=== PATIENT | male | born 1965 | race Caucasian/White ===

== ENCOUNTER 2017-05-29 07:42 | Emergency (ER) | payer MEDICAID ==
[2017-05-29 07:48] VITALS: BP 156/78; PULSE 81; RESP 16; TEMP 97.5; O2SAT 98
--- NOTE | 2017-05-29 07:52 | EDPHY ---
H & P Stated Complaint: metal in eye Time Seen by Provider: 05/29/17 07:51 - Personal History Current Tetanus/Diphtheria Vaccine: No Current Tetanus Diphtheria and Acellular Pertussis (TDAP): No - Medical/Surgical History Hx Asthma: No Hx Chronic Respiratory Disease: No Hx Diabetes: Yes Hx Cardiac Disease: No Hx Renal Disease: No Hx Cirrhosis: No Hx Alcoholism: No Hx HIV/AIDS: No Hx Splenectomy or Spleen Trauma: No Other PMH: type 1 DM - Social History Smoking Status: Light smoker Constitutional: Initial Vital Signs Temperature (C) 36.4 C 05/29/17 07:44 Heart Rate 81 05/29/17 07:44 Respiratory Rate 16 05/29/17 07:44 Blood Pressure 156/78 H 05/29/17 07:44 O2 Sat (%) 98 05/29/17 07:44 O2 Delivery Mode Room Air Allergies/Adverse Reactions: No Known Allergies Allergy (Unverified 03/26/10 16:31) Home Medications: Medication Instructions Recorded HUM INSULIN NPH/REG INSULIN HM 03/26/10 NPH, HUMAN INSULIN ISOPHANE 03/26/10 Ofloxacin 0.3% [Ocuflox 0.3%] 1 drops OP QID #1 opht.btl 05/29/17 Medical Decision Making ED Course/Re-evaluation: CHIEF COMPLAINT: Right eye foreign body HISTORY OF PRESENT ILLNESS: This patient is a 51 year old male complaining of right eye pain secondary to a piece of metal that became stuck in his eye yesterday afternoon. He states he was grinding metal and a piece flew into his eye. He states he was wearing soft contacts at the time, and when he took them out yesterday evening, he noted pain and observed a small dallas of metal. He states he attempted to remove the object with a paper towel, but was unsuccessful. He denies any changes in vision , discharge, or other associated symptoms. No other trauma. REVIEW OF SYSTEMS: A 10 point review of systems was performed and is negative with the exception of the elements mentioned in the history of present illness. PHYSICAL EXAM: Visual Acuity: Noted from Nurse's notes. Pupils: PERRLA, EOMI, no nystagmus, no trauma, no injection. Lids: No edema or swelling Skin: No proptosis, no periorbital erythema or swelling, no vesicles Conjunctivae: Mild injection, not icteric, no discharge Cornea: Exam with slit lamp and fluorescein shows metallic foreign body on surface at 2 o'clock position, small rust ring Anterior chamber: Normal, no hyphema or hypopyon Posterior Chamber: No papilledema or hemorrhages. Past medical history: Diabetes mellitus type I Past surgical history: Noncontributory Family history: Noncontributory Social history: Lives in [place]. DIAGNOSTICS/PROCEDURES/CRITICAL CARE TIME: Procedure: Eye foreign body removal The patient's eye was anesthetized with proparacaine drops. Foreign body easily extracted with 18 gauge needle. No complications. The patient tolerated the procedure well. DIFFERENTIAL DIAGNOSIS: The differential diagnosis for the patients eye pain included but was not limited to foreign body, corneal abrasion, allergic, viral, bacterial, or chemical conjunctivitis. MEDICAL DECISION MAKING: This patient is a 51 year old male presenting with a small metallic foreign object in his right eye. Physical exam reveals a tiny dallas of metal about 0.5mm in diameter on the surface of the cornea at the 2 o'clock position. Plan to remove foreign body. The metallic foreign body was easily extracted as described above. Plan to discharge home in good condition. The patient will follow up with ophthalmology this week. He has been given a prescription for Ocuflox drops. Offered tetanus shot, but the patient declines at this time. I discussed the importance of receiving a tetanus shot within the next 72 hours. The patient understands this and is comfortable with discharge. - Data Points Medications Given: Discontinued Medications Proparacaine HCl (Alcaine 0.5%) 1 drops RTEYE ONCE ONE Stop: 05/29/17 08:07 Last Admin: 05/29/17 08:08 Dose: 1 drop Departure - Departure Disposition: Home, Routine, Self-Care Clinical Impression: Corneal abrasion Qualifiers: Encounter type: initial encounter Laterality: right Qualified Code(s): S05.01XA - Injury of conjunctiva and corneal abrasion without foreign body, right eye, initial encounter Eye foreign body Qualifiers: Encounter type: initial encounter Laterality: right Qualified Code(s): T15.91XA - Foreign body on external eye, part unspecified, right eye, initial encounter Condition: Good Instructions: Corneal Abrasion (ED), Eye Foreign Body (ED) Additional Instructions: 1. Use your Ocuflox drops as prescribed four times a day for the next 3-4 days. 2. Follow up with an 911 operator this week. We have referred your to our eye doctor outdoor education teacher, but you may follow up with your 911 operator if you prefer. 3. Remember to get your tetanus shot within the next 72 hours as we discussed. 4. Return to the Emergency Department if you develop any changes in your vision , increased redness, discharge, or other worsening of condition. Referrals: Kd Acosta MD [Medical Doctor] - As per Instructions Prescriptions: Ofloxacin 0.3% [Ocuflox 0.3%] 1 drops OP QID #1 opht.btl Report Scribed for: Harshad Shepard Report Scribed by: Lakeshia Lizama Date of Report: 05/29/17 Time of Report: 08:12
[2017-05-29] MEDS ORDERED: PROPARACAINE 0.5% 15 ML OPHT DROP ONE (07:53)
[2017-05-29] MEDS ORDERED: PROPARACAINE 0.5% 15 ML OPHT DROP RTEYE ONE (08:06)
== END 2017-05-29 08:17 | disposition home or self-care (01) ==
PROC: 08C8XZZ Extirpation of Matter from Right Cornea, External Approach (ICD-10-PCS; principal; 2017-05-29)
DX: T15.01XA Foreign body in cornea, right eye, initial encounter (principal); E10.9 Type 1 diabetes mellitus without complications; F17.200 Nicotine dependence, unspecified, uncomplicated; Z79.4 Long term (current) use of insulin; W22.8XXA Striking against or struck by other objects, initial encounter

== ENCOUNTER 2018-01-29 18:04 | Emergency (ER) | payer MEDICAID ==
[2018-01-29 18:25] VITALS: O2SAT 96
[2018-01-29] MEDS ORDERED: NS 1,000 ML IV ONE ×2 (18:52)
[2018-01-29] MEDS ORDERED: LORazepam 2 MG/ML INJ IVP ONE (18:53)
--- NOTE | 2018-01-29 18:53 | EDPHY ---
H & P Stated Complaint: Confusion, difficulty with fine motor tasks, history of diabetes Time Seen by Provider: 01/29/18 18:52 HPI/ROS: CHIEF COMPLAINT: Confusion, difficulty with fine motor tasks, alcohol dependence HISTORY OF PRESENT ILLNESS: The patient has been insulin controlled diabetic for 30 years. He presents to the ED today after he developed difficulties with fine motor tasks and confusion. The patient reports that he is an alcoholic and does drink heavily. He did feel as if he may been having symptoms of withdrawal which prompted him to drink alcohol today. This did not result in significant improvement of his symptoms. He reported he was having a difficult time making drawings, riding his bike and feels as if he has "brain fog." The patient complains of paresthesias in his bilateral upper lower extremities. The patient denies any history of fall or trauma. He does have a history of hospitalization for DKA several years ago. He does have a history of seizures in the past. He is not had a seizure in several years. REVIEW OF SYSTEMS: A comprehensive 10 point review of systems is otherwise negative aside from elements mentioned in the history of present illness. Source: Patient - Personal History Current Tetanus/Diphtheria Vaccine: Yes - Medical/Surgical History Hx Asthma: No Hx Chronic Respiratory Disease: No Hx Diabetes: Yes Hx Cardiac Disease: No Hx Renal Disease: No Hx Cirrhosis: No Hx Alcoholism: Yes Hx HIV/AIDS: No Hx Splenectomy or Spleen Trauma: No Other PMH: type 1 DM - Social History Smoking Status: Light smoker - Physical Exam Exam: General Appearance: Alert, no acute distress Eyes: Pupils equal and round no pallor or injection ENT, Mouth: Mucous membranes moist Respiratory: There are no retractions, lungs are clear to auscultation Cardiovascular: Regular rate and rhythm Gastrointestinal: Abdomen is soft and nontender, no masses, bowel sounds normal Neurological: 5/5 strength all 4 extremities, patient does have ataxia with finger to nose and abnormal heel to drake. Extraocular eye movements are intact , cranial nerves 2-12 are intact Skin: Warm and dry, no rashes Musculoskeletal: Neck is supple nontender Extremities: symmetrical, full range of motion Constitutional: Initial Vital Signs Temperature (C) 36.6 C 01/29/18 18:23 Heart Rate 82 01/29/18 18:23 Respiratory Rate 20 01/29/18 18:23 Blood Pressure 148/86 H 01/29/18 18:23 O2 Sat (%) 96 01/29/18 18:23 O2 Delivery Mode Room Air Allergies/Adverse Reactions: No Known Allergies Allergy (Verified 01/29/18 18:21) Home Medications: Medication Instructions Recorded HUM INSULIN NPH/REG INSULIN HM 03/26/10 NPH, HUMAN INSULIN ISOPHANE 03/26/10 Medical Decision Making - Diagnostics Imaging Results: Imaging Impressions Skull X-Ray 01/29/18 00:00 Impression: Negative. The MR technologist was notified at 8:30 PM on 01/29/2018. Brain MRI 01/29/18 19:20 Impression: 1. There may be a mild degree of cerebellar atrophy, but no acute intracranial abnormality. 2. There is no acute or subacute infarct, or intracranial hemorrhage. Findings were discussed with Jono Camacho MD at 21:12, on 01/29/2018. ED Course/Re-evaluation: Given the patient's cerebellar complaints he was taken for a brain MRI which demonstrates no evidence of an acute infarct. There is questionable mild cerebellar atrophy otherwise no acute findings. The patient has no evidence of diabetic ketoacidosis. Aside from cerebellar abnormalities noted on his exam and slight tremor his neurologic examination was otherwise unremarkable. The patient was given 1 mg of Ativan. The patient ambulated at 9:20 p.m.. Differential Diagnosis: Differential diagnosis considered includes alcohol withdrawal, diabetic ketoacidosis, metabolic abnormality, stroke - Data Points Laboratory Results: Laboratory Results 01/29/18 18:50 01/29/18 18:50 01/29/18 01/29/18 18:50 18:50 WBC 8.71 10^3/uL 10^3/uL (3.80-9.50) RBC 4.61 10^6/uL 10^6/uL (4.40-6.38) Hgb 14.2 g/dL g/dL (13.7-17.5) Hct 41.8 % % (40.0-51.0) MCV 90.7 fL fL (81.5-99.8) MCH 30.8 pg pg (27.9-34.1) MCHC 34.0 g/dL g/dL (32.4-36.7) RDW 11.7 % % (11.5-15.2) Plt Count 292 10^3/uL 10^3/uL (150-400) MPV 9.3 fL fL (8.7-11.7) Neut % (Auto) 70.7 % % (39.3-74.2) Lymph % (Auto) 21.0 % % (15.0-45.0) Levy % (Auto) 6.2 % % (4.5-13.0) Eos % (Auto) 1.5 % % (0.6-7.6) Baso % (Auto) 0.3 % % (0.3-1.7) Nucleat RBC Rel Count 0.0 % % (0.0-0.2) Absolute Neuts (auto) 6.15 10^3/uL 10^3/uL (1.70-6.50) Absolute Lymphs (auto) 1.83 10^3/uL 10^3/uL (1.00-3.00) Absolute Monos (auto) 0.54 10^3/uL 10^3/uL (0.30-0.80) Absolute Eos (auto) 0.13 10^3/uL 10^3/uL (0.03-0.40) Absolute Basos (auto) 0.03 10^3/uL 10^3/uL (0.02-0.10) Absolute Nucleated RBC 0.00 10^3/uL 10^3/uL (0-0.01) Immature Gran % 0.3 % % (0.0-1.1) Immature Gran # 0.03 10^3/uL 10^3/uL (0.00-0.10) Sodium 135 mEq/L mEq/L (135-145) Potassium 4.3 mEq/L mEq/L (3.5-5.2) Chloride 96 mEq/L L mEq/L (97-110) Carbon Dioxide 25 mEq/l mEq/l (22-31) Anion Gap 14 mEq/L mEq/L (8-16) BUN 15 mg/dL mg/dL (7-23) Creatinine 0.8 mg/dL mg/dL (0.7-1.3) Estimated GFR > 60 Glucose 194 mg/dL H mg/dL (70-100) Calcium 10.0 mg/dL mg/dL (8.5-10.4) Lipase 71 IU/L IU/L (23-300) Medications Given: Discontinued Medications Sodium Chloride (Ns) 1,000 mls @ 0 mls/hr IV EDNOW ONE; Wide Open PRN Reason: Protocol Stop: 01/29/18 18:53 Last Admin: 01/29/18 19:25 Dose: 1,000 mls Sodium Chloride (Ns) 1,000 mls @ 0 mls/hr IV EDNOW ONE; Wide Open PRN Reason: Protocol Stop: 01/29/18 18:53 Last Admin: 01/29/18 19:25 Dose: 1,000 mls Lorazepam (Ativan Injection) 1 mg IVP EDNOW ONE Stop: 01/29/18 18:54 Last Admin: 01/29/18 19:24 Dose: 1 mg Departure - Departure Disposition: Home, Routine, Self-Care Clinical Impression: Alcohol dependence, Alcohol withdrawal, Discoordination Condition: Good Instructions: Type 1 Diabetes in Adults (ED) Additional Instructions: 1. I do recommend following up with a neurologist, Dr. Ady Chau, you have been referred to for any ongoing neurologic symptoms. 2. It is certainly possible your experiencing a degree of alcohol withdrawal contributing to your symptoms today. You have been given the contact information for the [facility] if you need assistance with alcohol dependence or symptoms of withdrawal. 3. Return to the ED for any markedly worsening neurologic symptoms, severe headache, fever or other concerns. Referrals: Ady Chau DO [Medical Doctor] - As per Instructions
[2018-01-29 18:59] LABS: PLATELET COUNT 292 10^3/uL (150-400)
[2018-01-29 19:47] VITALS: RESP 16
[2018-01-29 21:43] VITALS: BP 133/86; PULSE 81; TEMP 97.5
== END 2018-01-29 21:43 | disposition home or self-care (01) ==
DX: F10.239 Alcohol dependence with withdrawal, unspecified (principal); R27.8 Other lack of coordination; E10.9 Type 1 diabetes mellitus without complications; F17.200 Nicotine dependence, unspecified, uncomplicated; E86.9 Volume depletion, unspecified
CPT/HCPCS: 96374; J2060

== ENCOUNTER 2019-03-26 08:57 | Day surgery (SDC) | payer MEDICAID ==
--- NOTE | 2019-03-25 16:22 | PDHPUP ---
History & Physical Update H&P update statement: This history and physical update is based on an assessment of the patient which was completed after admission or registration (within 24 hours), but prior to the surgery/procedure. H&P update: H&P reviewed & patient examined, no change in patient's condition since H&P completed
--- NOTE | 2019-03-25 16:33 | GHP ---
[f rep st] PREOP HISTORY AND PHYSICAL CHIEF COMPLAINT: This is a gentleman who has right scrotal pain. HISTORY OF PRESENT ILLNESS: He is a 53-year-old gentleman who has had chronic right scrotal pain on a scale of 6/10 off and on for the past 8 years. He has had an ultrasound that shows a localized spermatocele measuring 8 x 6 mm. An attempted aspiration in the past had been unsuccessful. PAST MEDICAL HISTORY: Alcohol abuse, diabetes, spermatocele. SURGERIES: None. MEDICATION: Insulin. ALLERGIES: No known drug allergies. FAMILY HISTORY: Positive for melanoma. SOCIAL HISTORY: Moderate alcohol consumption. Former smoker. REVIEW OF SYSTEMS: Negative cardiac, respiratory, GI and endocrine. PHYSICAL EXAMINATION: VITAL SIGNS: Stable. CHEST: Clear. HEART: Regular rate and rhythm. ABDOMEN: Normal. No organomegaly, rebound or guarding. LOWER EXTREMITIES: Normal. : At the present time, he has a left epididymal cyst and he is admitted for a spermatocelectomy. Indications, complications and risks associated with this have been discussed. Written and verbal consent have been obtained and he is to be admitted for the above procedure. /[id number]/MODL MTDD
[2019-03-26] MEDS ORDERED: ceFAZolin 2 GM/DEXTROSE 100 ML IV ONE (09:07)
[2019-03-26] MEDS ORDERED: LR 1,000 ML IV ONE (09:08)
[2019-03-26] MEDS ORDERED: MIDAZOLAM 2 MG/2 ML VIAL IVP ONE (10:54)
--- NOTE | 2019-03-26 10:54 | PDANEPAE ---
ANE History of Present Illness spermatocele and here for removal ANE Past Medical History - Cardiovascular History Hx Hypertension: Yes Hx Arrhythmias: No Hx Chest Pain: No Hx Coronary Artery / Peripheral Vascular Disease: No Hx CHF / Valvular Disease: No Hx Palpitations: No - Pulmonary History Hx COPD: No Hx Asthma/Reactive Airway Disease: No Hx Recent Upper Respiratory Infection: No Hx Oxygen in Use at Home: No Hx Sleep Apnea: No Sleep Apnea Screening Result - Last Documented: Positive - Neurologic History Hx Cerebrovascular Accident: No Hx Seizures: No Hx Dementia: No Neurologic History Comment: Peripheral neuropathy intermittently. - Endocrine History Hx Diabetes: Yes Endocrine History Comment: Type 1 DM x30 years. - Renal History Hx Renal Disorders: No - Liver History Hx Hepatic Disorders: No - Neurological & Psychiatric Hx Hx Neurological and Psychiatric Disorders: Yes Neurological / Psychiatric History Comment: ETOH abuse, sober 4mo. - Cancer History Hx Cancer: No - Congenital Disorder History Hx Congenital Disorders: No - GI History Hx Gastrointestinal Disorders: No - Other Health History Other Health History: Dyslexia. Spermtocele. Missing teeth, has temporary teeth (not removable). - Chronic Pain History Chronic Pain: No - Surgical History Prior Surgeries: Scrotal cyst drainage x2. ANE Review of Systems Review of Systems: - Exercise capacity METS (RN): 4 METS ANE Patient History - Allergies Allergies/Adverse Reactions: No Known Allergies Allergy (Verified 01/29/18 18:21) - Home Medications Home Medications: Aspirin [Aspirin 325 mg (*)] 325 mg PO DAILY PRN 03/19/19 [Last Taken 1 Week Ago ~03/19/19] Cyanocobalamin (Vitamin B-12) [Vitamin B-12] 5,000 - 10,000 mcg PO DAILY [Last Taken 1 Day Ago ~03/25/19] Insulin Aspart [Novolog Flexpen] unit SQ 03/19/19 [Last Taken 1 Day Ago ~] Insulin Detemir [Levemir Flextouch] unit SQ 03/19/19 [Last Taken 03/26/19 06:30] - NPO status NPO Since - Liquids (Date): 03/25/19 NPO Since - Liquids (Time): 20:30 NPO Since - Solids (Date): 03/25/19 NPO Since - Solids (Time): 19:00 - Smoking Hx Smoking Status: Light smoker - Family Anes Hx Family Hx Anesthesia Complications: None. ANE Labs/Vital Signs - Vital Signs Blood Pressure: 128/80 Heart Rate: 65 Respiratory Rate: 18 O2 Sat (%): 96 Height: 190.5 cm Weight: 83.915 kg ANE Physical Exam - Airway Neck exam: FROM Mallampati Score: Class 1 Mouth exam: normal dental/mouth exam - Pulmonary Pulmonary: no respiratory distress, no rales or rhonchi - Cardiovascular Cardiovascular: regular rate and rhythym, no murmur, rub, or gallop - ASA Status ASA Status: II ANE Anesthesia Plan Anesthesia Plan: GA w LMA Total IV Anesthesia: No
[2019-03-26] MEDS ORDERED: BACITRACIN ZINC 0.5 OZ OINTTUBE TP ONE (10:58)
[2019-03-26] MEDS ORDERED: MIDAZOLAM 2 MG/2 ML VIAL ONE (10:58)
[2019-03-26] MEDS ORDERED: BUPIVACAINE 0.5% 30 ML SDV ONE (10:59)
[2019-03-26] MEDS ORDERED: PROPOFOL 200 MG/20 ML VIAL ONE (11:10)
[2019-03-26] MEDS ORDERED: DEXAMETHASONE 4 MG/ML VIAL ONE (11:10)
[2019-03-26] MEDS ORDERED: LIDOCAINE 2% 100 MG/5 ML SYR ONE (11:10)
[2019-03-26] MEDS ORDERED: fentaNYL 250 MCG/5 ML INJ ONE (11:10)
[2019-03-26] MEDS ORDERED: LR 500 ML IV PRN (12:20)
[2019-03-26] MEDS ORDERED: NALOXONE HCL 0.4 MG/ML INJ IVP PRN (12:20)
[2019-03-26] MEDS ORDERED: fentaNYL 100 MCG/2 ML INJ IVP PRN (12:20)
[2019-03-26] MEDS ORDERED: PROMETHAZINE HCL 25 MG/ML INJ IVP PRN (12:20)
[2019-03-26] MEDS ORDERED: DIAZEPAM 10 MG/2 ML SYR IVP PRN (12:20)
[2019-03-26] MEDS ORDERED: HYDROmorphONE/DILAUDID 1 MG/ML INJ IVP PRN (12:20)
[2019-03-26] MEDS ORDERED: oxyCODONE IR 5 MG TAB PO PRN (12:20)
[2019-03-26] MEDS ORDERED: MEPERIDINE 25 MG/0.5 ML AMP IVP PRN (12:20)
[2019-03-26] MEDS ORDERED: ACETAMINOPHEN 500 MG TAB PO PRN (12:20)
[2019-03-26] MEDS ORDERED: METOCLOPRAMIDE 10 MG/2 ML VIAL IVP PRN (12:20)
--- NOTE | 2019-03-26 12:37 | POSTANESTH ---
Post Anesthetic Evaluation Cardiovascular Status: Normal, Stable Respiratory Status: Normal, Stable Level of Consciousness/Mental Status: Can Participate in Eval, Alert and Oriented Pain Control: Adequate, Prn Tx Ordered Nausea/Vomiting Control: Adequate, Prn Tx Ordered Complications Possibly Related to Anesthesia: None Noted
--- NOTE | 2019-03-26 12:48 | POSTOPPROG ---
Post Op Note Date of Operation: 03/26/19 (dictated) Surgeon: Williams Ramirez Anesthesiologist: Diane Anesthesia: LMA Pre-op Diagnosis: rt spermatocele Procedure: spermatocelectomy Inf/Abcess present in the surg proc area at time of surgery?: No EBL: Minimal Specimen(s): sent
--- NOTE | 2019-03-26 13:01 | GOP ---
[f rep st] OPERATIVE REPORT DATE OF OPERATION: 03/26/2019 SURGEON: Williams Ramirez MD ANESTHESIA: General. ANESTHESIOLOGIST: Joanne Magallanes DO PREOPERATIVE DIAGNOSIS: Right spermatocele. POSTOPERATIVE DIAGNOSIS: Right spermatocele. PROCEDURE PERFORMED: Right spermatocelectomy/epididymectomy. FINDINGS: A large right-sided spermatocele that was at least 400 cc volume. SPECIMENS: Sent to pathology. ESTIMATED BLOOD LOSS: Less than 10 mL. DESCRIPTION OF PROCEDURE: Was prepped and draped in normal sterile fashion in the supine position. After time-out and local injection of the spermatic cord with local anesthesia, scrotal incision was made, carried down through skin, dartos and the tunica vaginalis. At that point, delivered the spermatocele and testicle out of the scrotum, and this large lesion was dissected out. Hemostasis provided with ties and electrocautery. Identified the vas deferens and the blood supply going into the hilum of the testicle and preserved that and then where the upper pole of the testicle had the dilated efferent ductules of the testis going into this large structure. So, at that point, we clamped it and excised it, sent it for specimen; and then I approximated the tunica albuginea with a running 3-0 chromic. At the end of the procedure, there was no bleeding. The testicle had good color, and then I repositioned it in the normal anatomic position with 3-0 chromic and then closed the tunica vaginalis. There was no bleeding. Local anesthesia provided, and dartos approximated with 3-0 chromic; and 3-0 chromic used, horizontal mattresses, to close the skin. He tolerated the procedure well. Sterile dressing placed. COMPLICATIONS: None. He will be discharged home to have followup with me in the office in 3 weeks. /[id number]/MODL MTDD
[2019-03-26 14:26] VITALS: BP 118/82
== END 2019-03-26 14:20 | disposition home or self-care (01) ==
LOC: FSGY 08:57
PROVIDERS: ATTEND Specialist
PROC: 0VBJ0ZZ Excision of Right Epididymis, Open Approach (ICD-10-PCS; principal; 2019-03-26 11:00)
DX: N43.41 Spermatocele of epididymis, single (principal); E10.40 Type 1 diabetes mellitus with diabetic neuropathy, unspecified; I10 Essential (primary) hypertension; F10.21 Alcohol dependence, in remission; Z79.4 Long term (current) use of insulin; Z87.891 Personal history of nicotine dependence
CPT/HCPCS: J0690; J1100; J2001; J2250; J2704; J3010